=== PATIENT | female | born 1935 | race Caucasian/White ===

== ENCOUNTER 2024-07-10 10:22 | Emergency (ER) | payer MEDICARE, MEDICAID ==
[~2024-07-10] VITALS: Ht 167.6 cm; Wt 68.0 kg
[~2024-07-10 10:22] MED LIST: ALBU6.7H3 INH; BUPR100T13 PO; FLUT1AER IH; LAM1 PO; LOSA50TA41 PO; MEMA21CA PO; MIRT-89 PO; OXYB-52 PO
[2024-07-10 10:25] VITALS: O2SAT 100
[2024-07-10 14:02] VITALS: BP 138/75; PULSE 60; RESP 18; TEMP 36.89184; O2SAT 100
== END 2024-07-10 14:00 | disposition home or self-care (01) ==
LOC: ER 10:22
DX: R55 Syncope and collapse (principal); J44.1 Chronic obstructive pulmonary disease with (acute) exacerbation; I10 Essential (primary) hypertension; F03.90 Unspecified dementia, unspecified severity, without behavioral disturbance, psychotic disturbance, mood disturbance, and anxiety; W06.XXXA Fall from bed, initial encounter; Y93.89 Activity, other specified; Y92.89 Other specified places as the place of occurrence of the external cause; Y99.8 Other external cause status
CPT/HCPCS: 99284